=== PATIENT | female | born 1995 | race Two or more races ===

== ENCOUNTER 2023-05-04 14:19 | Outpatient (CLI) | payer OTHER | END 2023-05-04 14:21 | disposition home or self-care (01) | LOC: PRENATAL 14:19 | PROVIDERS: ATTEND Obstetrics & Gynecology Maternal & Fetal Medicine | DX: O35.3XX0 Maternal care for (suspected) damage to fetus from viral disease in mother, not applicable or unspecified (principal); O44.00 Complete placenta previa NOS or without hemorrhage, unspecified trimester; O26.879 Cervical shortening, unspecified trimester; Z3A.19 19 weeks gestation of pregnancy ==

== ENCOUNTER 2023-05-20 11:29 | Outpatient (CLI) | payer OTHER | END 2023-05-20 11:30 | disposition home or self-care (01) | LOC: PRENATAL 11:29 | PROVIDERS: ATTEND Obstetrics & Gynecology Maternal & Fetal Medicine | DX: O26.879 Cervical shortening, unspecified trimester (principal); Z3A.21 21 weeks gestation of pregnancy ==

== ENCOUNTER 2023-05-29 16:11 | Emergency (ER) | payer OTHER ==
[~2023-05-29] VITALS: Ht 152.4 cm; Wt 41.3 kg
[2023-05-29] MEDS ORDERED: FOLIC ACID20 MG PO (17:20)
[2023-05-29] MEDS ORDERED: ZOFRAN8 MG PO (17:20)
[2023-05-29] MEDS ORDERED: PRENATAL + DHA1 EAC1 PO (17:20)
[2023-05-29 19:40] LABS: HEMATOCRIT 32.4 % (36.0-45.00); HEMOGLOBIN 10.9 g/dL (12.0-15.00); MEAN CELL VOLUME 95.3 fL (80.00-100.00); MEAN CORPUSCULAR HEMOGLOBIN 32.1 pg (27.00-32.0); MEAN CORPUSCULAR HGB CONC 33.7 g/dl (32.0-36.0); PLATELET COUNT 143 K/uL (150-450); RED CELL DISTRIBUTION WIDTH 13.9 % (11.5-14.5)
[2023-05-29 20:08] LABS: PH,URINE 7.5 (5.0-8.0); URINE APPEARANCE Clear; URINE BILIRRUBIN Negative (NEGATIVE); URINE BLOOD Negative; URINE COLOR Yellow; URINE GLUCOSE Negative (NEGATIVE); URINE LEUKOCYTE Negative; URINE NITRATE Negative; URINE PROTEIN Negative (NEGATIVE); URINE UROBILINOGEN 0.2 E.U./dl
[2023-05-29 20:12] LABS: URINE BACTERIA 54.1 uL (0.0-1933)
[2023-05-29 20:15] LABS: URINE EPITHELIAL CELLS 1.2 uL (0.0-38.8); URINE RBC 0.1 uL (0.0-20.8); URINE WBC 0.7 uL (0.0-23.2)
== END 2023-05-29 21:59 | disposition home or self-care (01) ==
LOC: ER 16:11
PROVIDERS: General Practice
DX: O98.512 Other viral diseases complicating pregnancy, second trimester (principal); U07.1 COVID-19; Z3A.22 22 weeks gestation of pregnancy

== ENCOUNTER 2023-06-05 08:31 | Outpatient (CLI) | payer OTHER ==
[~2023-06-05 08:31] MED LIST: FOLIC ACID20 MG PO; PRENATAL + DHA1 EAC1 PO; ZOFRAN8 MG PO
== END 2023-06-05 08:32 | disposition home or self-care (01) ==
LOC: PRENATAL 08:31
PROVIDERS: ATTEND Obstetrics & Gynecology Maternal & Fetal Medicine
DX: O26.879 Cervical shortening, unspecified trimester (principal); Z3A.24 24 weeks gestation of pregnancy

== ENCOUNTER 2023-07-07 15:39 | Outpatient (CLI) | payer OTHER | END 2023-07-07 15:41 | disposition home or self-care (01) | LOC: PRENATAL 15:39 | PROVIDERS: ATTEND Obstetrics & Gynecology Maternal & Fetal Medicine | DX: O26.849 Uterine size-date discrepancy, unspecified trimester (principal); O26.879 Cervical shortening, unspecified trimester; Z3A.28 28 weeks gestation of pregnancy ==

== ENCOUNTER 2023-08-05 10:36 | Outpatient (CLI) | payer OTHER | END 2023-08-05 10:37 | disposition home or self-care (01) | LOC: PRENATAL 10:36 | PROVIDERS: ATTEND Obstetrics & Gynecology Maternal & Fetal Medicine | DX: O26.849 Uterine size-date discrepancy, unspecified trimester (principal); O36.8199 Decreased fetal movements, unspecified trimester, other fetus; Z3A.32 32 weeks gestation of pregnancy ==

== ENCOUNTER → 2023-09-02 10:54 | Outpatient (CLI) | payer OTHER | END | disposition home or self-care (01) | LOC: PRENATAL 10:54 | PROVIDERS: ATTEND Obstetrics & Gynecology Maternal & Fetal Medicine | DX: O26.849 Uterine size-date discrepancy, unspecified trimester (principal); O36.8199 Decreased fetal movements, unspecified trimester, other fetus; O26.879 Cervical shortening, unspecified trimester; Z3A.36 36 weeks gestation of pregnancy ==